=== PATIENT | male | born 2000 | race African-American/Black ===

== ENCOUNTER 2020-08-14 15:21 | Emergency (ER) | payer BC ==
[~2020-08-14] VITALS: Ht 177.8 cm; Wt 72.6 kg
[2020-08-14 15:56] VITALS: BP 119/78
--- NOTE | 2020-08-14 16:02 | NUR ---
ED Nurse Note:pt. came from home with c/o fever and flu like symptoms
--- NOTE | 2020-08-14 16:03 | Emergency Room Report ---
History of Present Illness General Chief Complaint: Flu Like Symptoms Source: Patient Present Illness HPI 20-year-old male with no significant past medical history accompanied of 4 days of generalized body aches, fever and chills, sore throat and few bouts of nonbloody diarrhea. Denies any congestion. Denies shortness of breath, headache and dizziness. Complains of a productive cough. Denies loss of taste and smell. Reports that he smokes marijuana daily basis. Denies other drug use and alcohol intake. Has not taken medication for symptom relief. Denies coming in contact with anyone who he knows is positive for Covid. Allergies: Coded Allergies: No Known Allergies (Unverified , 08/14/20) COVID-19 Screening Contact w/high risk pt: No Experienced COVID-19 symptoms?: Yes COVID-19 Testing performed TAG MARKER: No Patient History Past Medical History: see triage record Past Surgical History: none Pertinent Family History: none Social History: Reports: drug use - Marijuana Immunizations: UTD Reviewed Nursing Documentation: PMH: Agreed; PSxH: Agreed Nursing Documentation-PMH Past Medical History: No Stated History Review of Systems All Other Systems: negative except mentioned in HPI Physical Exam Vital Signs Date Time Temp Pulse Resp B/P (MAP) Pulse Ox O2 Delivery O2 Flow Rate FiO2 08/14/20 15:22 98.6 87 18 119/78 (92) 98 Room Air Sp02 EP Interpretation: reviewed, normal General Appearance: no apparent distress, alert, GCS 15, non-toxic Head: normocephalic, atraumatic Eyes: bilateral eye normal inspection, bilateral eye PERRL ENT: hearing grossly normal, no angioedema, normal voice Neck: full range of motion, supple/symm/no masses Respiratory: no respiratory distress, no retraction, no accessory muscle use, speaking full sentences Cardiovascular #1: regular rate, rhythm Gastrointestinal: non-distended Musculoskeletal: back normal Neurologic: alert, motor strength/tone normal, oriented x3, sensory intact, responsive, speech normal Psychiatric: judgement/insight normal, memory normal, mood/affect normal, no suicidal/homicidal ideation Skin: no rash Lymphatic: no adenopathy Medical Decision Making PA Attestation All my diagnosis and treatment plans were reviewed ad discussed with my supervising physician Dr. Meyers Diagnostic Impression: Primary Impression: Suspected 2019 novel coronavirus infection ER Course 20-year-old male with no significant past medical history accompanied of 4 days of generalized body aches, fever and chills, sore throat and few bouts of nonbloody diarrhea. Denies any congestion. Denies shortness of breath, headache and dizziness. Complains of a productive cough. Denies loss of taste and smell. Reports that he smokes marijuana daily basis. Denies other drug use and alcohol intake. Has not taken medication for symptom relief. Denies coming in contact with anyone who he knows is positive for Covid. Ddx considered but are not limited to: strep pharyngitis, URI, tonsillitis, ivan tonsillar abscess, influneza, coronavirus Vital signs: are WNL, pt. is afebrile H&PE are most consistent with: Suspected coronavirus ORDERS: Chest x-ray, azithromycin, prednisone, Phenergan ED INTERVENTIONS: None required at this time. DISCHARGE: At this time pt. is stable for d/c to home. Will provide printed patient care instructions, and any necessary prescriptions. Care plan and follow up instructions have been discussed with the patient prior to discharge. Take medication as directed, follow primary care provider, I recommend you get tested for Covid, self isolate, if worsening symptoms return to the emergency room Chest X-Ray Diagnostic Results Chest X-Ray Diagnostic Results : Chest X-Ray Ordered: Yes # of Views/Limited/Complete: 1 View Indication: Shortness of Breath EP Interpretation: Yes ABBEY Xray: Interpretation reviewed, by supervising MD, and agrees with findings. Interpretation: no consolidation, no effusion, no pneumothorax Impression: No acute disease Electronically Signed by: Yaakov Cisneros PA-C Last Vital Signs Date Time Temp Pulse Resp B/P (MAP) Pulse Ox O2 Delivery O2 Flow Rate FiO2 08/14/20 15:22 98.6 87 18 119/78 (92) 98 Room Air Disposition: HOME, SELF-CARE Condition: Stable Scripts Promethazine Hcl (PROMETHAZINE HCL*) 6.25 Mg/5 Ml Syrup 5 ML ORAL Q8H, #120 ML 0 Refills Prov: Yaakov Villaseñor 08/14/20 Azithromycin* (ZITHROMAX*) 250 Mg Tablet 250 MG ORAL DAILY, #6 TAB 0 Refills Take two tables once daily for 1 day, then one tablet once daily for 4 days. Prov: Yaakov Villaseñor 08/14/20 Prednisone* (PREDNISONE*) 20 Mg Tablet 40 MG ORAL DAILY for 5 Days, #10 TAB Prov: Yaakov Villaseñor 08/14/20 Referrals: NOT CHOSEN IPA/,REFERRING (PCP) Patient Instructions: Upper Respiratory Infection, Adult, [id number] Additional Instructions: Take medication as directed, follow with primary care provider, if worsening symptoms return to the emergency room. I suggest he get tested for Covid. Yaakov Villaseñor Aug 14, 2020 16:03
[2020-08-14] MEDS ORDERED: ZITHROMAX250 MG ORAL (16:04)
[2020-08-14] MEDS ORDERED: PREDNISONE20 MG ORAL (16:04)
[2020-08-14] MEDS ORDERED: PROMETHAZI6.25 MG/1 ORAL (16:04)
--- NOTE | 2020-08-14 16:09 | Diagnostic Imaging Report ---
Indication: Reason For Exam: SOB Technique: Single AP view of the chest. Comparison: None. Findings: The cardiomediastinal silhouette is within normal limits. There is no focal consolidation, pneumothorax or pleural effusion. Osseous structures demonstrate no acute abnormality. IMPRESSION: No radiographic evidence of acute cardiopulmonary process.
[2020-08-14 16:10] VITALS: BP 119/78
--- NOTE | 2020-08-14 16:10 | NUR ---
ED Nurse Note: Pt cleared by health care Provider for discharge. DC instructions/prescription was given and explained to pt and verbalized understanding of teachings. All medical deviecs such as ID band removed. Pt is AAO x4, ambulatory and left with all personal belongings.
== END 2020-08-14 16:10 | disposition home or self-care (01) ==
LOC: EMR 15:58
DX: R07.0 Pain in throat (principal); R05 Cough; R19.7 Diarrhea, unspecified; F12.90 Cannabis use, unspecified, uncomplicated; R06.02 Shortness of breath
CPT/HCPCS: 71045; 99283